=== PATIENT | male | born 1960 | race Caucasian/White ===

== ENCOUNTER 2023-11-11 00:36 | Observation (INO) ==
--- NOTE | 2023-11-11 02:02 | Emergency Department Note ---
Impression & Plan Acute alteration in mental status, Hypoglycemia, Leukocytosis, Elevated BUN, DM (diabetes mellitus), type 2 ED Provider Note CHIEF COMPLAINT: Hypoglycemia HISTORY OF PRESENTING ILLNESS: This 63-year-old male patient presents to the emergency department with his for evaluation of hypoglycemia. The patient states that he was recently diagnosed with diabetes. He took his nighttime dose of Lantus of 32 units at 2230. Shortly afterwards he was walking the dog and became lightheaded and diaphoretic. He stated that he just didn't feel right and went to lay down on the couch. Unsure how long he was on the couch and he does not remember being on the couch. His then found him on the couch and he was acting confused. They took his blood sugar and it was 82. The patient had not eaten dinner since 1730. He states that he drank some juice and ate some candy around midnight. He states that his blood sugar improved after the juice and candy. His BSG in triage was 166. He has been running around 140-150 at home typically since starting the insulin. Was in the 300's before starting insulin. He has been seeing a immigration investigator, but has not seen a healthcare educator yet. The patient denies any chest pain, SOB, or abdominal pain. His nausea and vomiting has improved. He denies any symptoms currently and states that he is at his baseline. Denies hematochezia, melena, hematuria, hemoptysis, or hematemesis. REVIEW OF SYSTEMS: See HPI for pertinent positives and pertinent negatives. ALLERGIES: NKDA MEDICATIONS: Metformin ER 500 mg 2 tab QAM, Lantus 20 units every evening - if fasting BSG >125 for 3 days in a row, increase by 2 units to a max of 40 units a day PAST MEDICAL HISTORY: Type 2 insulin dependant Diabetes PHYSICAL EXAM: VITALS: Vitals are noted on the nurse's note and reviewed by myself. GENERAL: Non toxic, no acute distress, non-diaphoretic. SKIN: Capillary refill <2 sec. EYES: PERRLA. EOMI. Conjunctivae without injection, sclerae without icterus. NOSE: Patent without discharge. MOUTH: Mucous membranes moist. Uvula midline. Airway patent. NECK: Supple without nuchal rigidity. HEART: Regular rate and rhythm without murmurs gallops or rubs. LUNGS: Clear to auscultation bilaterally without wheezes, rales or rhonchi. No retractions or accessory muscle use. ABDOMEN: Positive bowel sounds x 4. Normal tympanic percussion. Soft, nontender. No masses or organomegaly. Lopez sign negative. No guarding or rebound tenderness. No focal RLQ or LLQ tenderness. MUSCULOSKELETAL: No gross musculoskeletal defects. Peripheral pulses 2+. NEURO: Patient was alert and oriented. No focal neurological deficits. DIFFERENTIAL DIAGNOSIS: Differential diagnosis includes hypoglycemia, hyperglycemia, DKA, infection, UTI, dehydration, electrolyte abnormality, or others. ED COURSE AND MEDICAL DECISION MAKING: HISTORY FROM INDEPENDENT HISTORIAN: Additional history obtained from the patient's . MONITOR: Continuous microbiology professor: Order was placed for continuous microbiology professor. Patient was placed on the microbiology professor and continuous pulse ox. Patient was noted to be in normal sinus rhythm at an initial rate of 84 bpm per my interpretation. EKG: EKG was interpreted by myself as normal sinus rhythm at 88 bpm with a right bundle branch block. No obvious acute ST or T wave changes. No previous EKGs to compare. MEDICATIONS GIVEN: 1 L normal saline solution bolus. INTERPRETATION OF LABS: I interpreted the labs with full lab results as below in the lab section of this note. White blood cell count elevated 18.03. Hemoglobin normal at 15.3. Platelet count normal at 296. Sodium 135, glucose 215, and BUN 40, but the remainder of the CMP unremarkable. The patient's glucose on arrival was 166, was 215 with lab draw, and improved to 142 after the 1 L normal saline solution bolus. Lipase normal. High-sensitivity troponin x 2 were normal. D-dimer was normal. Magnesium normal. INTERPRETATION OF IMAGING: Imaging studies were interpreted by myself and read by radiology as per the imaging section of this note. Chest x-ray without acute cardiopulmonary etiology. CT scan of the head without contrast was negative for acute intracranial abnormality. EXTERNAL RECORDS REVIEWED: I reviewed the patient's medical records from [facility]. Laboratory studies on 10/07/2023 showed a normal BUN and normal white blood cell count. CONSULTATIONS: On-call hospitalist [facility] SUMMARY: I examined the patient. The patient initially stated that he took his nighttime dose of Lantus 32 units and shortly afterwards became lightheaded and diaphoretic. He retook his blood sugar and it was 82. Once he ate some candy and drink some orange juice, his symptoms resolved. However, since he is a newly diagnosed diabetic and newly on insulin, the patient wanted to be evaluated. The patient denies any symptoms while in the emergency department. An IV lock was placed and labs were drawn. The patient's glucose on arrival was 166, was 215 with lab draw, and improved to 142 after the 1 L normal saline solution bolus. The patient's white blood cell count is elevated 18.03 with uncertain causes. The patient denies any infectious symptoms or etiology. The patient's BUN is also elevated at 40 with normal creatinine. His laboratory studies from 10/07/2023 showed a normal BUN and white blood cell count. Remainder the laboratory studies without significant abnormalities including normal high-sensitivity troponin and EKG. The patient was independently evaluated by Dr. Rubio, who agrees with my assessment and treatment plan. Upon further questioning by Dr. Rubio it was determined that the patient's symptoms may not have been secondary to hypoglycemia. The patient and his gave additional history including that the patient took his Lantus and then took the dog for a walk. He did become symptomatic with the lightheadedness and diaphoresis and went to sit on the couch to feel better. However, he does not remember sitting on the couch and does not remember anything until his found him on the couch. His stated that he was very confused when she found him. The patient's symptoms did improve with the orange juice and candy though. Question whether the patient's symptoms were actually secondary to a syncopal episode, seizure, or other acute abnormality rather than the hypoglycemia. Repeat high-sensitivity troponin was normal. D-dimer was normal. CT scan of the patient's head without contrast was unremarkable. Chest x-ray was unremarkable. Due to the patient's uncertain etiology of his symptoms, his leukocytosis, and elevated BUN, it was felt the patient would benefit from further inpatient evaluation and treatment. I spoke with the on-call hospitalist who agreed to admit the patient for further management. Please refer to their dictation for further details. The patient's care was transferred in stable condition. DIAGNOSIS: Alteration in mental status - ? syncopal episode vs hypoglycemia vs other etiology Hypoglycemia Leukocytosis Elevated BUN Type 2 diabetes on insulin Past Med/Surg History Problem List (Updated 11/11/23 @ 20:53 by Lamar Garcia PA-C) DM (diabetes mellitus), type 2 (Acute) Acute alteration in mental status (Acute) Elevated BUN (Acute) Leukocytosis (Acute) Hypoglycemia (Acute) Surgical History S/P MCL (medial collateral ligament) repair Family History Mother Diabetes Father Dementia Social History Smoking Status: Never smoker Hx Alcohol Use: No Hx Substance Use: No Preferred Language: Kyrgyz Communication Ability: Effective Ticket Sales Supervisor Required: No Beliefs That Will Affect Care: None Current Living Situation: Spouse Other Information That Helps Us Care for You: No Feels Safe at Home: Yes Safety Concerns: Feels Safe At This Time Assistive Devices: None Allergies Allergies Allergy/AdvReac Type Severity Reaction Status Date / Time spider venom Allergy Hives Verified 11/11/23 11:08 Home Meds Home Medications Medication Instructions Recorded Confirmed ashheberdha extract 120 mg capsule 125 mg PO DAILY 11/11/23 11/11/23 blood sugar diagnostic (Accu-Chek 11/11/23 11/11/23 Guide test strips) blood-glucose meter (Accu-Chek 11/11/23 11/11/23 Guide Me Glucose Meter) insulin glargine 100 unit/mL (3 20 unit subcut QPM 11/11/23 11/11/23 mL) subcutaneous pen (Lantus Solostar U-100 Insulin) lancets 33 gauge (OneTouch Delica 11/11/23 11/11/23 Plus Lancet) metformin 500 mg tablet,extended 1,000 mg PO QAM 11/11/23 11/11/23 release 24 hr multivitamin 1 tab PO DAILY 11/11/23 11/11/23 pen needle, diabetic 32 gauge x 11/11/23 11/11/23 5/32" (BD Tamara 2nd Gen Pen Needle) vitamin K2 100 mcg capsule 100 mcg PO DAILY 11/11/23 11/11/23 Results & Data (ED) Vital Signs Vital Signs - 24 hr 11/11/23 00:44 11/11/23 02:13 11/11/23 02:30 Temperature 36.5 C Temperature Source Temporal Artery Scan Pulse Rate 90 Pulse Rate [Right Finger] 87 88 Pulse Rhythm [Right Finger] Regular Respiratory Rate 18 16 18 Respiratory Effort / Characteristics Non-Labored Spontaneous Non-Labored Spontaneous Respiratory Depth Normal Normal Respiratory Pattern Regular Regular Blood Pressure 135/79 Blood Pressure [Right Arm] 125/69 125/69 Blood Pressure Mean 97 Blood Pressure Mean [Right Arm] 87 87 Blood Pressure Position Sitting Pulse Oximetry 98 95 98 Oxygen Delivery Method Room Air Room Air Room Air Sepsis Recent Fever Within 48 Hours No Sepsis New/Unexplained Change in Mental Status N/A Sepsis Action Taken by Nursing No Action Required 11/11/23 03:22 11/11/23 03:23 11/11/23 07:24 Temperature Temperature Source Pulse Rate Pulse Rate [Right Finger] 85 83 Pulse Rhythm [Right Finger] Regular Respiratory Rate 16 14 Respiratory Effort / Characteristics Non-Labored Spontaneous Respiratory Depth Normal Respiratory Pattern Regular Blood Pressure Blood Pressure [Right Arm] 127/66 140/84 Blood Pressure Mean Blood Pressure Mean [Right Arm] 86 102 Blood Pressure Position Pulse Oximetry 96 96 98 Oxygen Delivery Method Room Air Room Air Room Air Sepsis Recent Fever Within 48 Hours Sepsis New/Unexplained Change in Mental Status Sepsis Action Taken by Nursing Laboratory Data 11/11/23 02:07 11/11/23 02:07 Lab Results 11/11/23 11/11/23 11/11/23 Range/Units 00:51 02:07 03:25 WBC 18.03 H (4.8-10.8) K/ul RBC 5.10 (4.70-6.10) M/uL Hgb 15.3 (14.0-18.0) g/dl Hct 44.8 (42.0-52.0) % MCV 87.8 (80.0-100.0) fL MCH 30.0 (25.0-34.0) pg MCHC 34.2 (32.0-36.0) g/dL RDW Std Deviation 39.6 (36.4-46.3) fL RDW Coeff of Mercedes 12.3 (11.5-14.5) % Plt Count 296 (130-400) K/uL MPV 10.4 (9.4-12.4) fL Immature Gran % (Auto) 0.9 % Neut % (Auto) 83.7 % Lymph % (Auto) 7.0 % [place] % (Auto) 7.6 % Eos % (Auto) 0.2 % Baso % (Auto) 0.6 % Neut # (Auto) 15.08 H (1.40-6.50) K/uL Lymph # (Auto) 1.27 (1.20-3.40) K/uL [place] # (Auto) 1.37 H (0.11-0.59) K/uL Eos # (Auto) 0.04 (0.00-0.50) K/uL Baso # (Auto) 0.11 (0.00-0.20) K/uL Immature Gran # (Auto) 0.16 (0.01-0.20) K/uL D-Dimer (0-500) ug/L FEU Sodium 135 L (136-145) mmol/L Potassium 4.3 (3.5-5.1) mmol/L Chloride 103 (98-107) mmol/L Carbon Dioxide 23 (21-32) mmol/L Anion Gap 9 (3-11) BUN 40 H (6-23) mg/dl Creatinine 1.05 (0.6-1.4) mg/dl Est Cr Clr Drug Dosing 69.7 ml/min Est GFR ( Amer) 87.1 ml/min Est GFR (Non-Af Amer) 75.2 ml/min BUN/Creatinine Ratio 38.1 H (10-20) Glucose 215 H (70-99(Fasting)) mg/dl POC Glucose 166 H (70-99) mg/dl Calcium 9.6 (8.6-10.3) mg/dl Magnesium (1.7-2.4) mg/dl Total Bilirubin 0.2 (0.2-1.0) mg/dl AST 21 (13-39) U/L ALT 25 (7-52) U/L Alkaline Phosphatase 72 (34-104) U/L Troponin I High Sens 5.0 (0-20) pg/ml Total Protein 7.0 (6.0-8.3) gm/dl Albumin 4.2 (3.4-5.0) gm/dl Globulin 2.8 (2.5-4.0) gm/dl Albumin/Globulin Ratio 1.5 (0.9-2) Lipase 49 (11-82) U/L Urine Color Yellow Urine Appearance Clear (Clear) Urine pH 5.0 (4.5-7.5) Ur Specific [place] 1.032 H (1.000-1.030) Urine Protein Negative (Negative) Urine Glucose (UA) 3+ H (Negative) Urine Ketones Trace H (Negative) Urine Blood Negative (Negative) Urine Nitrite Negative (Negative) Urine Bilirubin Negative (Negative) Urine Urobilinogen Negative (Negative) Ur Leukocyte Esterase Negative (Negative) 11/11/23 11/11/23 Range/Units 05:02 07:01 WBC (4.8-10.8) K/ul RBC (4.70-6.10) M/uL Hgb (14.0-18.0) g/dl Hct (42.0-52.0) % MCV (80.0-100.0) fL MCH (25.0-34.0) pg MCHC (32.0-36.0) g/dL RDW Std Deviation (36.4-46.3) fL RDW Coeff of Mercedes (11.5-14.5) % Plt Count (130-400) K/uL MPV (9.4-12.4) fL Immature Gran % (Auto) % Neut % (Auto) % Lymph % (Auto) % [place] % (Auto) % Eos % (Auto) % Baso % (Auto) % Neut # (Auto) (1.40-6.50) K/uL Lymph # (Auto) (1.20-3.40) K/uL [place] # (Auto) (0.11-0.59) K/uL Eos # (Auto) (0.00-0.50) K/uL Baso # (Auto) (0.00-0.20) K/uL Immature Gran # (Auto) (0.01-0.20) K/uL D-Dimer 470 (0-500) ug/L FEU Sodium (136-145) mmol/L Potassium (3.5-5.1) mmol/L Chloride (98-107) mmol/L Carbon Dioxide (21-32) mmol/L Anion Gap (3-11) BUN (6-23) mg/dl Creatinine (0.6-1.4) mg/dl Est Cr Clr Drug Dosing ml/min Est GFR ( Amer) ml/min Est GFR (Non-Af Amer) ml/min BUN/Creatinine Ratio (10-20) Glucose (70-99(Fasting)) mg/dl POC Glucose 142 H (70-99) mg/dl Calcium (8.6-10.3) mg/dl Magnesium 2.0 (1.7-2.4) mg/dl Total Bilirubin (0.2-1.0) mg/dl AST (13-39) U/L ALT (7-52) U/L Alkaline Phosphatase (34-104) U/L Troponin I High Sens 4.8 (0-20) pg/ml Total Protein (6.0-8.3) gm/dl Albumin (3.4-5.0) gm/dl Globulin (2.5-4.0) gm/dl Albumin/Globulin Ratio (0.9-2) Lipase (11-82) U/L Urine Color Urine Appearance (Clear) Urine pH (4.5-7.5) Ur Specific [place] (1.000-1.030) Urine Protein (Negative) Urine Glucose (UA) (Negative) Urine Ketones (Negative) Urine Blood (Negative) Urine Nitrite (Negative) Urine Bilirubin (Negative) Urine Urobilinogen (Negative) Ur Leukocyte Esterase (Negative) Administered Medications Enoxaparin Sodium (Enoxaparin Inj 40 Mg/0.4 Ml Syr) 40 mg SQ QAM NALINI Stop: 12/11/23 11:59 Last Admin: 11/11/23 12:36 Dose: Not Given Documented By: JANEE Insulin Aspart (Insulin Aspart Per Unit Charge) 0 units SC ACHS NALINI Stop: 12/11/23 11:29 Last Admin: 11/11/23 17:54 Dose: 2 units Documented By: QUENTIN Co-signed By: BERNARDA Admin: 11/11/23 13:47 Dose: 4 units Documented By: JANEE Co-signed By: ALEKSANDRA Discontinued Medications Sodium Chloride (Nss) 1,000 mls @ 999 mls/hr IV .[id number] ONE Stop: 11/11/23 04:46 Last Infusion: 11/11/23 05:00 Dose: Infused Documented By: Admin: 11/11/23 04:15 Dose: 999 mls/hr Documented By: SUE Lactated Ringer's (Lr) 1,000 mls @ 75 mls/hr IV .[id number] ONE Stop: 11/11/23 23:46 Last Infusion: 11/11/23 19:35 Dose: Infused Documented By: Admin: 11/11/23 13:50 Dose: 75 mls/hr Documented By: JANEE Miscellaneous Information (Patient's Allergy Info Needs Entered) 1 each N/A Q30M NALINI Stop: 12/11/23 10:44 Last Admin: 11/11/23 19:37 Dose: Not Given Documented By: Admin: 11/11/23 18:23 Dose: 1 each Documented By: Admin: 11/11/23 12:11 Dose: 1 each Documented By: JANEE Discharge Plan Visit Data Chief Complaint: Hypoglycemia Stated Complaint: DIABETIC,SUGAR LEVEL 80-PETRONA ED Provider: Jamie Rubio ED Midlevel Provider: Lamar Garcia Discharge Problem: Acute alteration in mental status, Hypoglycemia, Leukocytosis, Elevated BUN, DM (diabetes mellitus), type 2 Patient Disposition: Admitted As Inpatient Condition: Good Discharge Instructions Interventions: ED Discharge Assessment Last Done: 11/11/23 20:07 Discharge Problem: Leukocytosis Qualifiers: Leukocytosis type: unspecified Qualified Code(s): D72.829 - Elevated white blood cell count, unspecified
[2023-11-11 02:35] LABS: Basophils # (auto) 0.11 K/uL (0.00-0.20); Basophils % (auto) 0.6 %; Eosinophils # (auto) 0.04 K/uL (0.00-0.50); Eosinophils % (auto) 0.2 %; Hematocrit (blood only) 44.8 % (42.0-52.0); Hemoglobin 15.3 g/dl (14.0-18.0); Immature Granulocytes # (auto) 0.16 K/uL (0.01-0.20); Immature Granulocytes % (auto) 0.9 %; Lymphocytes # (auto) 1.27 K/uL (1.20-3.40); Mean Corpuscular Hgb Conc 34.2 g/dL (32.0-36.0); Mean Corpuscular Volume 87.8 fL (80.0-100.0); Mean Platelet Volume 10.4 fL (9.4-12.4); Monocytes # (auto) 1.37 K/uL (0.11-0.59); Monocytes % (auto) 7.6 %; Neutrophils # (auto) 15.08 K/uL (1.40-6.50); Neutrophils % (auto) 83.7 %; Platelet Count 296 K/uL (130-400); RDW Coefficient of Variation 12.3 % (11.5-14.5); RDW Standard Deviation 39.6 fL (36.4-46.3); White Blood Count 18.03 K/ul (4.8-10.8)
[2023-11-11 03:04] LABS: Albumin Globulin Ratio 1.5 (0.9-2); Albumin Level 4.2 gm/dl (3.4-5.0); BUN Creatinine Ratio 38.1 (10-20); Bilirubin,Total 0.2 mg/dl (0.2-1.0); Calcium 9.6 mg/dl (8.6-10.3); Creatinine Clr Calc Pharmacy 69.7 ml/min; Est GFR (African American) 87.1 ml/min; Est GFR (Non-African American) 75.2 ml/min; Globulin 2.8 gm/dl (2.5-4.0)
[2023-11-11 03:20] LABS: Potassium 4.3 mmol/L (3.5-5.1)
[2023-11-11] MEDS: SODIUM CHLORIDE 0.9% 1,000 ML IV ONE (04:15)
[2023-11-11 04:16] LABS: Appearance Urine Clear (Clear); Bilirubin Urine Negative (Negative); Blood Urine Negative (Negative); Color Urine Yellow; Glucose Urine UA 3+ (Negative); Ketones Urine Trace (Negative); Leukocyte Esterase Urine Negative (Negative); Nitrite Urine Negative (Negative); Protein Urine Negative (Negative); Specific Gravity Urine 1.032 (1.000-1.030); Urobilinogen Urine Negative (Negative)
--- NOTE | 2023-11-11 06:55 | CT Scan Report ---
CT SCAN OF THE BRAIN WITHOUT IV CONTRAST CLINICAL HISTORY: Syncope. COMPARISON STUDY: No priors. TECHNIQUE: Unenhanced axial CT scan of the brain is performed from the vertex to the skull base. A d ose lowering technique was utilized adhering to the principles of ALARA. CT DOSE: 625.8 mGy.cm FINDINGS: Brain parenchyma: The brain parenchyma is normal in appearance. There is no hemorrhage, mass effect, or evidence of acute territorial ischemia by CT criteria. Velazquez-white matter differentiation is preser noah. No extra-axial fluid collection is seen. Ventricles, sulci, cisterns: Normal in configuration. Intracranial vasculature: The visualized intracranial vasculature at the skull base is normal in appe arance. Calvarium: Unremarkable. Sinuses and mastoids: The visualized paranasal sinuses are clear. The mastoid air cells are well pneu matized. Orbits: The bony orbits are grossly intact. IMPRESSION: No acute intracranial abnormality. ACT 112: Negative or not required by law. Electronically signed by: Musa Emerson M.D. 11/11/2023 6:53 AM
--- NOTE | 2023-11-11 06:56 | Communication Note ---
Date of Service: November 11, 2023 Requested to admit patient before 6:30 AM. Patient brought in for near syncope/syncope, low BSG at home as per ED provider. Patient informed me that he does not want to stay despite recommendations of medical providers and 's pleading. I communicated this to Dr. Rubio (ED provider) who will talk to the patient again. I requested ED provider to contact Dr. Rodríguez regarding patient disposition.
[2023-11-11 07:36] LABS: Troponin I High Sensitivity 4.8 pg/ml (0-20)
[2023-11-11 07:41] LABS: D Dimer 470 ug/L FEU (0-500)
--- NOTE | 2023-11-11 08:26 | History & Physical Report ---
Date of Service November 11, 2023 Assessment & Plan (1) Acute alteration in mental status: Plan: Altered mental status Possible metabolic encephalopathy secondary to hypoglycemic episode Possible syncope --CT head:No acute intracranial abnormality. --Carotid Doppler:No hemodynamically significant stenosis or significant atherosclerotic plaquing. Normal antegrade vertebral flow bilaterally. --ECHO: Left ventricle systolic pressure is normal. EF 65 to 70%. Left ventricle wall motion is normal. No significant valvular pathology. --Check orthostatics --Minimize hypoglycemic episodes as able --Mental status back to baseline --Monitor on telemetry for any arrhythmias --May need ZIO monitor as outpatient Will give gentle IV fluids Uncontrolled Diabetes mellitus Type II HbA1C:13.5 on 10/07/23 Recently diagnosed Hold metformin for now Continue insulin while hospitalized Avoid hypoglycemic episodes as able Monitor BGs Glycemic pharmacist consulted clinical systems educator consulted as well Update HbA1c Leukocytosis Likely situational Normal lactate levels UA, chest x-ray not suggestive of infection Afebrile No obvious source of infection Monitor CBC Hyperlipidemia Currently not on medications Right bundle branch block No prior EKG for comparison Monitor Other chronic conditions: Nephrolithiasis Varicose Veins Stable DVT Px: Lovenox SQ CODE STATUS Full Code History of Present Illness Chief Complaint: Hypoglycemia Primary Care Provider: Evelin Bhatti MD Patient is a 63-year-old male with history of diabetes mellitus type 2, nephrolithiasis, hyperlipidemia, varicose veins, the medical problems presents with history of possible syncopal episode which she attributes to blood glucose levels. Patient was recently diagnosed to have diabetes mellitus and started on Lantus and metformin. He was started on Lantus 20 units daily and was advised to increase by 2 units until he reaches a target goal of fasting blood glucose levels less than 125. Currently patient taking 32 units daily. Patient admits to taking 32 units of Lantus and later felt very weak and tired and remembers to have rested on his couch was unsure at the time whether he slept versus passed out. When he woke up this morning he noticed to have pounding heartbeats associated with diaphoresis. His family noted him to have difficulty understanding him over the phone. When checked his glucose levels it was found to be 82. He consumed some candies and fruit juice which resolved his symptoms and he came to ED for further evaluation. States being very active at baseline and currently trying to avoid carbohydrates to improve his blood glucose levels. He denies any prior syncopal episodes in the past. Reports having diarrhea since being on metformin started 1 month ago. Denies any history of chest pain, dyspnea, dizziness, pedal edema, cough, fever, chills, fall, head trauma, headache, focal weakness, change in vision, facial deformity, bowel/bladder incontinence, nausea, vomiting, abdominal pain, dysuria. Allergies Allergy/AdvReac Type Severity Reaction Status Date / Time spider venom Allergy Hives Verified 11/11/23 11:08 Home Medications Medication Instructions Recorded Confirmed Type flashdha extract 120 mg capsule 125 mg PO DAILY 11/11/23 11/11/23 History blood sugar diagnostic (Accu-Chek 11/11/23 11/11/23 History Guide test strips) blood-glucose meter (Accu-Chek 11/11/23 11/11/23 History Guide Me Glucose Meter) insulin glargine 100 unit/mL (3 20 unit subcut QPM 11/11/23 11/11/23 History mL) subcutaneous pen (Lantus Solostar U-100 Insulin) lancets 33 gauge (OneTouch Delica 11/11/23 11/11/23 History Plus Lancet) metformin 500 mg tablet,extended 1,000 mg PO QAM 11/11/23 11/11/23 History release 24 hr multivitamin 1 tab PO DAILY 11/11/23 11/11/23 History pen needle, diabetic 32 gauge x 11/11/23 11/11/23 History 5/32" (BD Tamara 2nd Gen Pen Needle) vitamin K2 100 mcg capsule 100 mcg PO DAILY 11/11/23 11/11/23 History Past Med/Surg History Problem List DM (diabetes mellitus), type 2 Acute alteration in mental status (Acute) Elevated BUN (Acute) Leukocytosis (Acute) Hypoglycemia (Acute) Surgical History S/P MCL (medial collateral ligament) repair Family History Mother Diabetes Father Dementia Social History Smoking Status: Never smoker Hx Alcohol Use: No Hx Substance Use: No Preferred Language: Guatemalan Communication Ability: Effective Appraiser Required: No Beliefs That Will Affect Care: None Current Living Situation: Spouse Other Information That Helps Us Care for You: No Feels Safe at Home: Yes Safety Concerns: Feels Safe At This Time Assistive Devices: None Review of Systems Review of Systems: All systems reviewed & are unremarkable except as noted in Subjective Physical Exam Physical Exam: Physical Exam: Vitals signs as noted above General Appearance:Moderately built and nourished, no apparent distress Head: normocephalic, Atraumatic Eyes: normal inspection, EOMI Neck: supple, Trachea midline Respiratory/Chest: Normal breath sounds, CTA, No accessory muscle use Cardiovascular: S1, S2, No murmur Abdomen/GI:Soft, Non tender, Bowel sounds present Extremities/Musculoskeletal:normal inspection, no edema Neurologic/Psych:AAOX3, grossly no focal neurological deficits Skin: normal color, warm Results & Data Results & Data Vital Signs (Past 12 Hours) Vital Signs Temp Pulse Pulse Resp BP BP Pulse Ox 11/11/23 07:24 83 14 140/84 98 11/11/23 03:23 96 11/11/23 03:22 85 16 127/66 96 11/11/23 02:30 88 18 125/69 98 11/11/23 02:13 87 16 125/69 95 11/11/23 00:44 36.5 C 90 18 135/79 98 O2 Del Method 11/11/23 07:24 Room Air 11/11/23 03:23 Room Air 11/11/23 03:22 Room Air 11/11/23 02:30 Room Air 11/11/23 02:13 Room Air 11/11/23 00:44 Room Air Laboratory Results Short CBC 11/11/23 Range/Units 02:07 WBC 18.03 H (4.8-10.8) K/ul Hgb 15.3 (14.0-18.0) g/dl Hct 44.8 (42.0-52.0) % Plt Count 296 (130-400) K/uL BMP 11/11/23 02:07 Sodium 135 L Potassium 4.3 Chloride 103 Carbon Dioxide 23 BUN 40 H Creatinine 1.05 Glucose 215 H Calcium 9.6 Liver Function 11/11/23 Range/Units 02:07 Total Bilirubin 0.2 (0.2-1.0) mg/dl AST 21 (13-39) U/L ALT 25 (7-52) U/L Alkaline Phosphatase 72 (34-104) U/L Albumin 4.2 (3.4-5.0) gm/dl Urine 11/11/23 Range/Units 03:25 Urine Color Yellow Urine Appearance Clear (Clear) Urine pH 5.0 (4.5-7.5) Ur Specific [place] 1.032 H (1.000-1.030) Urine Protein Negative (Negative) Urine Glucose (UA) 3+ H (Negative) Diagnostic Findings --CT head:No acute intracranial abnormality. ECG Additional Comments: Normal sinus rhythm, right bundle branch block, QTc 513
--- NOTE | 2023-11-11 09:19 | XRay Report ---
XR chest 1V portable HISTORY: 63 years-old Male Leukocytosis COMPARISON: None TECHNIQUE: AP view of the chest FINDINGS: Cardiac mediastinal and hilar silhouettes are within normal limits. No pneumothorax, pleural effusion or airspace consolidation. 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 The bones appea r grossly intact. IMPRESSION: No acute process. ACT 112: Negative or not required by law. The above report was generated using voice recognition software. It may contain grammatical, syntax o r spelling errors. Electronically signed by: Marin Bravo M.D. 11/11/2023 9:17 AM
[2023-11-11] MEDS ORDERED: GLUCOSE 10 TAB/TUBE PO PRN (10:27)
[2023-11-11] MEDS ORDERED: POLYETHYLENE (MIRALAX) 17 GM PACK PO PRN (10:27)
[2023-11-11] MEDS ORDERED: PROMETHAZINE HCL 6.25 MG in SODIUM CHLORIDE 0.9% 50 ML IV PRN (10:27)
[2023-11-11] MEDS ORDERED: GLUCAGON FOR INJ 1 MG VIAL SQ PRN (10:27)
[2023-11-11] MEDS ORDERED: ACETAMINOPHEN 325 MG TAB PO PRN (10:27)
[2023-11-11] MEDS ORDERED: CARBOHYDRATES FOR HYPOGLYCEMIA PO PRN (10:27)
[2023-11-11] MEDS ORDERED: GLUCOSE 40% GEL 15 GM TUBE PO PRN (10:27)
[2023-11-11] MEDS ORDERED: PHARMACY GLYCEMIC MGMT CONSULT PRN (10:27)
[2023-11-11] MEDS ORDERED: DEXTROSE 50% 50 ML SYRINGE IV PRN (10:27)
--- NOTE | 2023-11-11 12:09 | Ultrasound Report ---
US carotid doppler BI CLINICAL HISTORY: 63 years-old Male with Syncope. COMPARISON: Head CT of same day TECHNIQUE: Multiple real time sonographic images of the carotid bifurcations were obtained assessing byers scale, color Doppler and spectral wave form appearance FINDINGS: RIGHT CAROTID: The peak systolic velocity measured within the right ICA is 55 cm/sec. The end diast olic velocity measured 16 cm/sec. The ICA to CCA ratio measured 0.54 which correlates with a stenosi s of 0-50%. Mild atherosclerosis. LEFT CAROTID: The peak systolic velocity measured within the left ICA is 40 cm/sec. The end diastol ic velocity measured 15 cm/sec. The ICA to CCA ratio measured 0.43 which correlates with a stenosis o f 0-50%. Mild atherosclerosis. There is normal antegrade vertebral flow bilaterally. IMPRESSION: 1. No hemodynamically significant stenosis or significant atherosclerotic plaquing. 2. Normal antegrade vertebral flow bilaterally. ACT 112: Negative or not required by law. The above report was generated using voice recognition software. It may contain grammatical, syntax o r spelling errors. Electronically signed by: Marin Bravo M.D. 11/11/2023 12:07 PM
[2023-11-11] MEDS: Patient's ALLERGY Info needs ENTERED SCH (12:11)
[2023-11-11] MEDS: ENOXAPARIN INJ 40 MG/0.4 ML SYR SQ SCH (12:36)
[2023-11-11] MEDS: INSULIN ASPART PER UNIT CHARGE SC SCH (13:47)
[2023-11-11] MEDS: LACTATED RINGER'S 1,000 ML IV ONE (13:50)
--- NOTE | 2023-11-11 14:10 | Pharmacy Report ---
Pharmacy Glycemic Short Note 2 - Date of Service November 11, 2023 - Glycemic Short BSG Results (Last 24 hours): 11/11/23 11/11/23 11/11/23 00:51 02:07 05:02 Glucose 215 H POC Glucose 166 H 142 H 11/11/23 11:10 Glucose POC Glucose 172 H OUTPATIENT ANTIDIABETIC REGIMEN: * Lantus 20 units SC QPM- increase by 2 units if fasting BSG is greater than 125 mg/dl for 3 days to max of 40 units/day * Metformin ER 1000 mg PO QAM ASSESSMENT: * 63 y/o M came in to ER last night for hypoglycemia with symptoms. Patient had taken 32 units of Lantus at 22:30 last night. Recently diagnosed with Diabetes. Unknown A1c, ordered for tomorrow. * AM BSG= 142 and pre-lunch at 172 mg/dl. * Novolog parameters ordered with lunch conservatively based on stress between 1 and 2. * Basal insulin at HS ordered at reduced dose of 14 units based on stress of 2. PLAN FOR INPATIENT GLYCEMIC CONTROL: * Hold outpatient oral diabetes medications * Basal insulin * Lantus 14 units SQ HS. Re-assess dose tomorrow. * Bolus insulin * NovoLog per scale ACHS or Q6hrs while NPO * Goal Range: Low 120 mg/dL - High 150 mg/dL * Correction Factor: 35 mg/dL/unit * Nutritional / Prandial insulin per carb ratio of 1 unit per 13 grams CHO consumed
--- NOTE | 2023-11-11 17:12 | Electrocardiogram Report ---
Test Reason : Blood Pressure : / mmHG Vent. Rate : 088 BPM Atrial Rate : 088 BPM P-R Int : 160 ms QRS Dur : 154 ms QT Int : 424 ms P-R-T Axes : 056 075 044 degrees QTc Int : 513 ms Normal sinus rhythm Right bundle branch block Abnormal ECG No previous ECGs available Confirmed by Aidan Pina ([id number]) on 11/11/2023 5:12:27 PM Referred By: REFERRED SELF Confirmed By:Kody Pina
[2023-11-11] MEDS ORDERED: LANTUS PER UNIT CHARGE SQ SCH (21:00)
[2023-11-11] MEDS: LANTUS PER UNIT CHARGE SQ SCH (21:15)
[2023-11-12 06:45] LABS: Basophils # (auto) 0.11 K/uL (0.00-0.20); Basophils % (auto) 1.4 %; Eosinophils # (auto) 0.14 K/uL (0.00-0.50); Eosinophils % (auto) 1.8 %; Hematocrit (blood only) 41.7 % (42.0-52.0); Hemoglobin 14.3 g/dl (14.0-18.0); Immature Granulocytes # (auto) 0.03 K/uL (0.01-0.20); Immature Granulocytes % (auto) 0.4 %; Lymphocytes # (auto) 2.71 K/uL (1.20-3.40); Lymphocytes % (auto) 35.1 %; Mean Corpuscular Hemoglobin 29.6 pg (25.0-34.0); Mean Corpuscular Hgb Conc 34.3 g/dL (32.0-36.0); Mean Corpuscular Volume 86.3 fL (80.0-100.0); Mean Platelet Volume 10.4 fL (9.4-12.4); Monocytes # (auto) 1.04 K/uL (0.11-0.59); Monocytes % (auto) 13.5 %; Neutrophils % (auto) 47.8 %; Platelet Count 282 K/uL (130-400); RDW Coefficient of Variation 12.3 % (11.5-14.5); RDW Standard Deviation 38.8 fL (36.4-46.3); Red Blood Count 4.83 M/uL (4.70-6.10); White Blood Count 7.73 K/ul (4.8-10.8)
[2023-11-12 07:08] LABS: BUN Creatinine Ratio 22.8 (10-20); Calcium 9.1 mg/dl (8.6-10.3); Creatinine Clr Calc Pharmacy 72.4 ml/min; Est GFR (African American) 91.3 ml/min; Est GFR (Non-African American) 78.8 ml/min; Potassium 3.8 mmol/L (3.5-5.1)
[2023-11-12 07:44] LABS: Estimated Average Glucose 237 mg/dl; Hemoglobin A1C 9.9 % (4.5-5.6)
--- NOTE | 2023-11-12 10:17 | Hospitalist Progress Note ---
Date of Service November 12, 2023 Assessment & Plan (1) Acute alteration in mental status: Plan: Altered mental status Possible metabolic encephalopathy secondary to hypoglycemic episode Possible syncope --CT head:No acute intracranial abnormality. --Carotid Doppler:No hemodynamically significant stenosis or significant atherosclerotic plaquing. Normal antegrade vertebral flow bilaterally. --ECHO: Left ventricle systolic pressure is normal. EF 65 to 70%. Left ventricle wall motion is normal. No significant valvular pathology. --Normal orthostatics --Minimize hypoglycemic episodes as able --Mental status back to baseline --Monitor on telemetry for any arrhythmias --Advised outpatient ZIO monitor Plan to discharge home today Uncontrolled Diabetes mellitus Type II HbA1C:13.5 on 10/07/23 HbA1C 9.9 11/12/23 Recently diagnosed Hold metformin while hospitalized Continue insulin while hospitalized Avoid hypoglycemic episodes as able Monitor BGs Glycemic pharmacist consulted family living educator consulted Lantus dose decreased to 10 units BID on discharge Advised to follow-up with primary care physician for further adjustment of diabetic medications on discharge Leukocytosis Likely situational Normal lactate levels UA, chest x-ray not suggestive of infection Afebrile No obvious source of infection Monitor CBC Hyperlipidemia Currently not on medications Right bundle branch block No prior EKG for comparison Monitor Other chronic conditions: Nephrolithiasis Varicose Veins Stable DVT Px: Lovenox SQ CODE STATUS Full Code Disposition Home Admission and Anticipated Discharge Date Admission Date: November 11, 2023 Subjective Patient is seen and examined at bedside States feeling well today Offers no complaints Eager to get discharged Denies any chest pain, dyspnea, dizziness, nausea, vomiting, abdominal pain No other complaints Review of Systems Review of Systems: All systems reviewed & are unremarkable except as noted in Subjective Physical Exam Physical Exam: Physical Exam: Vitals signs as noted above General Appearance:Moderately built and nourished, no apparent distress Head: normocephalic, Atraumatic Eyes: normal inspection, EOMI Neck: supple, Trachea midline Respiratory/Chest: Normal breath sounds, CTA, No accessory muscle use Cardiovascular: S1, S2, No murmur Abdomen/GI:Soft, Non tender, Bowel sounds present Extremities/Musculoskeletal:normal inspection, no edema Neurologic/Psych:AAOX3, grossly no focal neurological deficits Skin: normal color, warm Results & Data Results & Data Vital Signs (Past 12 Hours) Vital Signs Temp Pulse Pulse Resp BP BP Pulse Ox 11/12/23 08:21 82 11/12/23 07:20 36.5 C 82 18 128/79 95 11/12/23 04:23 36.7 C 84 18 132/73 97 11/11/23 22:31 91 H O2 Del Method 11/12/23 08:21 11/12/23 07:20 Room Air 11/12/23 04:23 Room Air 11/11/23 22:31 Laboratory Results Short CBC 11/12/23 Range/Units 05:21 WBC 7.73 (4.8-10.8) K/ul Hgb 14.3 (14.0-18.0) g/dl Hct 41.7 L (42.0-52.0) % Plt Count 282 (130-400) K/uL BMP 11/12/23 05:21 Sodium 139 Potassium 3.8 Chloride 108 H Carbon Dioxide 24 BUN 23 Creatinine 1.01 Glucose 129 H Calcium 9.1
--- NOTE | 2023-11-12 12:30 | Discharge Summary ---
Date of Service November 12, 2023 Admission HPI Per Admitting Provider Patient is a 63-year-old male with history of diabetes mellitus type 2, nephrolithiasis, hyperlipidemia, varicose veins, the medical problems presents with history of possible syncopal episode which she attributes to blood glucose levels. Patient was recently diagnosed to have diabetes mellitus and started on Lantus and metformin. He was started on Lantus 20 units daily and was advised to increase by 2 units until he reaches a target goal of fasting blood glucose levels less than 125. Currently patient taking 32 units daily. Patient admits to taking 32 units of Lantus and later felt very weak and tired and remembers to have rested on his couch was unsure at the time whether he slept versus passed out. When he woke up this morning he noticed to have pounding heartbeats associated with diaphoresis. His family noted him to have difficulty understanding him over the phone. When checked his glucose levels it was found to be 82. He consumed some candies and fruit juice which resolved his symptoms and he came to ED for further evaluation. States being very active at baseline and currently trying to avoid carbohydrates to improve his blood glucose levels. He denies any prior syncopal episodes in the past. Reports having diarrhea since being on metformin started 1 month ago. Denies any history of chest pain, dyspnea, dizziness, pedal edema, cough, fever, chills, fall, head trauma, headache, focal weakness, change in vision, facial deformity, bowel/bladder incontinence, nausea, vomiting, abdominal pain, dysuria. Admission Exam Per Admitting Provider Physical Exam: Vitals signs as noted above General Appearance:Moderately built and nourished, no apparent distress Head: normocephalic, Atraumatic Eyes: normal inspection, EOMI Neck: supple, Trachea midline Respiratory/Chest: Normal breath sounds, CTA, No accessory muscle use Cardiovascular: S1, S2, No murmur Abdomen/GI:Soft, Non tender, Bowel sounds present Extremities/Musculoskeletal:normal inspection, no edema Neurologic/Psych:AAOX3, grossly no focal neurological deficits Skin: normal color, warm Principal Diagnosis Suspected syncopal episode due to hypoglycemia Acute metabolic encephalopathy Uncontrolled diabetes mellitus type 2 Right bundle branch block Discharge Data Allergies Allergy/AdvReac Type Severity Reaction Status Date / Time spider venom Allergy Hives Verified 11/11/23 11:08 Consultations 11/11/23 06:28 ED Decision to Admit Stat Procedures Performed Laboratory Results WBC 7.73 K/ul (4.8-10.8) 11/12/23 05:21 RBC 4.83 M/uL (4.70-6.10) 11/12/23 05:21 Hgb 14.3 g/dl (14.0-18.0) 11/12/23 05:21 Hct 41.7 % (42.0-52.0) L 11/12/23 05:21 MCV 86.3 fL (80.0-100.0) 11/12/23 05:21 MCH 29.6 pg (25.0-34.0) 11/12/23 05:21 MCHC 34.3 g/dL (32.0-36.0) 11/12/23 05:21 RDW Std Deviation 38.8 fL (36.4-46.3) 11/12/23 05:21 RDW Coeff of Mercedes 12.3 % (11.5-14.5) 11/12/23 05:21 Plt Count 282 K/uL (130-400) 11/12/23 05:21 MPV 10.4 fL (9.4-12.4) 11/12/23 05:21 Immature Gran % (Auto) 0.4 % 11/12/23 05:21 Neut % (Auto) 47.8 % 11/12/23 05:21 Lymph % (Auto) 35.1 % 11/12/23 05:21 Swain % (Auto) 13.5 % 11/12/23 05:21 Eos % (Auto) 1.8 % 11/12/23 05:21 Baso % (Auto) 1.4 % 11/12/23 05:21 Neut # (Auto) 3.70 K/uL (1.40-6.50) 11/12/23 05:21 Lymph # (Auto) 2.71 K/uL (1.20-3.40) 11/12/23 05:21 Swain # (Auto) 1.04 K/uL (0.11-0.59) H 11/12/23 05:21 Eos # (Auto) 0.14 K/uL (0.00-0.50) 11/12/23 05:21 Baso # (Auto) 0.11 K/uL (0.00-0.20) 11/12/23 05:21 Immature Gran # (Auto) 0.03 K/uL (0.01-0.20) 11/12/23 05:21 D-Dimer 470 ug/L FEU (0-500) 11/11/23 07:01 Sodium 139 mmol/L (136-145) 11/12/23 05:21 Potassium 3.8 mmol/L (3.5-5.1) 11/12/23 05:21 Chloride 108 mmol/L (98-107) H 11/12/23 05:21 Carbon Dioxide 24 mmol/L (21-32) 11/12/23 05:21 Anion Gap 7 (3-11) 11/12/23 05:21 BUN 23 mg/dl (6-23) 11/12/23 05:21 Creatinine 1.01 mg/dl (0.6-1.4) 11/12/23 05:21 Est Cr Clr Drug Dosing 72.4 ml/min 11/12/23 05:21 Est GFR ( Amer) 91.3 ml/min 11/12/23 05:21 Est GFR (Non-Af Amer) 78.8 ml/min 11/12/23 05:21 BUN/Creatinine Ratio 22.8 (10-20) H 11/12/23 05:21 Glucose 129 mg/dl (70-99(Fasting)) H 11/12/23 05:21 POC Glucose 127 mg/dl (70-99) H 11/12/23 07:53 Estimat Average Glucose 237 mg/dl 11/12/23 05:21 Hemoglobin A1c 9.9 % (4.5-5.6) H 11/12/23 05:21 Lactate 1.3 mmol/L (0.4-2.0) 11/11/23 11:27 Calcium 9.1 mg/dl (8.6-10.3) 11/12/23 05:21 Magnesium 2.0 mg/dl (1.7-2.4) 11/12/23 05:21 Total Bilirubin 0.2 mg/dl (0.2-1.0) 11/11/23 02:07 AST 21 U/L (13-39) 11/11/23 02:07 ALT 25 U/L (7-52) 11/11/23 02:07 Alkaline Phosphatase 72 U/L (34-104) 11/11/23 02:07 Troponin I High Sens 4.8 pg/ml (0-20) 11/11/23 07:01 Total Protein 7.0 gm/dl (6.0-8.3) 11/11/23 02:07 Albumin 4.2 gm/dl (3.4-5.0) 11/11/23 02:07 Globulin 2.8 gm/dl (2.5-4.0) 11/11/23 02:07 Albumin/Globulin Ratio 1.5 (0.9-2) 11/11/23 02:07 Lipase 49 U/L (11-82) 11/11/23 02:07 Urine Color Yellow 11/11/23 03:25 Urine Appearance Clear (Clear) 11/11/23 03:25 Urine pH 5.0 (4.5-7.5) 11/11/23 03:25 Ur Specific [place] 1.032 (1.000-1.030) H 11/11/23 03:25 Urine Protein Negative (Negative) 11/11/23 03:25 Urine Glucose (UA) 3+ (Negative) H 11/11/23 03:25 Urine Ketones Trace (Negative) H 11/11/23 03:25 Urine Blood Negative (Negative) 11/11/23 03:25 Urine Nitrite Negative (Negative) 11/11/23 03:25 Urine Bilirubin Negative (Negative) 11/11/23 03:25 Urine Urobilinogen Negative (Negative) 11/11/23 03:25 Ur Leukocyte Esterase Negative (Negative) 11/11/23 03:[address] 11/11/23 06:03 CT SCAN OF THE BRAIN WITHOUT IV CONTRAST CLINICAL HISTORY: Syncope. COMPARISON STUDY: No priors. TECHNIQUE: Unenhanced axial CT scan of the brain is performed from the vertex to the skull base. A dose lowering technique was utilized adhering to the principles of ALARA. CT DOSE: 625.8 mGy.cm FINDINGS: Brain parenchyma: The brain parenchyma is normal in appearance. There is no hemorrhage, mass effect, or evidence of acute territorial ischemia by CT criteria. Velazquez-white matter differentiation is preserved. No extra-axial fluid collection is seen. Ventricles, sulci, cisterns: Normal in configuration. Intracranial vasculature: The visualized intracranial vasculature at the skull base is normal in appearance. Calvarium: Unremarkable. Sinuses and mastoids: The visualized paranasal sinuses are clear. The mastoid air cells are well pneumatized. Orbits: The bony orbits are grossly intact. IMPRESSION: No acute intracranial abnormality. ACT 112: Negative or not required by law. Electronically signed by: Musa Emerson M.D. 11/11/2023 6:53 AM Chest X-Ray 11/11/23 08:39 XR chest 1V portable HISTORY: 63 years-old Male Leukocytosis COMPARISON: None TECHNIQUE: AP view of the chest FINDINGS: Cardiac mediastinal and hilar silhouettes are within normal limits. No pneumothorax, pleural effusion or airspace consolidation. 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 The bones appear grossly intact. IMPRESSION: No acute process. ACT 112: Negative or not required by law. The above report was generated using voice recognition software. It may contain grammatical, syntax or spelling errors. Electronically signed by: Marin Bravo M.D. 11/11/2023 9:17 AM Carotid Doppler Study 11/11/23 10:27 US carotid doppler BI CLINICAL HISTORY: 63 years-old Male with Syncope. COMPARISON: Head CT of same day TECHNIQUE: Multiple real time sonographic images of the carotid bifurcations were obtained assessing velazquez scale, color Doppler and spectral wave form appearance FINDINGS: RIGHT CAROTID: The peak systolic velocity measured within the right ICA is 55 cm/sec. The end diastolic velocity measured 16 cm/sec. The ICA to CCA ratio measured 0.54 which correlates with a stenosis of 0-50%. Mild atherosclerosis. LEFT CAROTID: The peak systolic velocity measured within the left ICA is 40 cm/sec. The end diastolic velocity measured 15 cm/sec. The ICA to CCA ratio measured 0.43 which correlates with a stenosis of 0-50%. Mild atherosclerosis. There is normal antegrade vertebral flow bilaterally. IMPRESSION: 1. No hemodynamically significant stenosis or significant atherosclerotic plaquing. 2. Normal antegrade vertebral flow bilaterally. ACT 112: Negative or not required by law. The above report was generated using voice recognition software. It may contain grammatical, syntax or spelling errors. Electronically signed by: Marin Bravo M.D. 11/11/2023 12:07 PM Ordered Studies 11/11/23 06:03 CT head/brain wo con Stat 11/11/23 10:27 US carotid doppler BI Routine Hospital Course (1) Acute alteration in mental status: Altered mental status Possible metabolic encephalopathy secondary to hypoglycemic episode Possible syncope --CT head:No acute intracranial abnormality. --Carotid Doppler:No hemodynamically significant stenosis or significant atherosclerotic plaquing. Normal antegrade vertebral flow bilaterally. --ECHO: Left ventricle systolic pressure is normal. EF 65 to 70%. Left ventricle wall motion is normal. No significant valvular pathology. --Normal orthostatics --Minimize hypoglycemic episodes as able --Mental status back to baseline --Monitor on telemetry for any arrhythmias --Advised outpatient ZIO monitor Plan to discharge home today Uncontrolled Diabetes mellitus Type II HbA1C:13.5 on 10/07/23 HbA1C 9.9 11/12/23 Recently diagnosed Hold metformin while hospitalized Continue insulin while hospitalized Avoid hypoglycemic episodes as able Monitor BGs Glycemic pharmacist consulted certified adapted physical educator consulted Lantus dose decreased to 10 units BID on discharge Advised to follow-up with primary care physician for further adjustment of diabetic medications on discharge Leukocytosis Likely situational Normal lactate levels UA, chest x-ray not suggestive of infection Afebrile No obvious source of infection Monitor CBC Hyperlipidemia Currently not on medications Right bundle branch block No prior EKG for comparison Monitor Other chronic conditions: Nephrolithiasis Varicose Veins Stable DVT Px: Lovenox SQ CODE STATUS Full Code Disposition Home Total Time Total Time Spent Total Time Spent (In Minutes): 48 minutes Discharge Plan Discharge Items Patient Disposition: Home - Self-Care Reason For Visit: PRESYNCOPE Discharge Diagnosis: Suspected syncopal episode due to hypoglycemia Uncontrolled diabetes mellitus type 2 Right bundle branch block Condition on Discharge: Good Activity: Per Instructions section Exercise/Sports: Gradually increase as tolerated Non-emergency contact: Primary Care Provider Call non-emergency contact if: you have any medication questions, your symptoms worsen, your pain is concerning for you and you have a fever Follow-up/Referrals: Evelin Bhatti MD [Primary Care Provider] - Diet: Carb Consistent or DM2 Addtl Attending Provider Instructions: Follow-up with your primary care physician in 1 week Follow-up with diabetic pharmacist/clinic in 1 week as advised --Monitor your blood glucose levels regularly as advised. --Consider ZIO monitor to rule out arrhythmias as advised. --Discuss with your physician for further adjustment of your diabetic medications as advised. Seek immediate medical attention if your symptoms reoccur or worsen Please take all medications as instructed on discharge list below. Please call if you have any questions or problems. You can reach a [facility] hospitalist on duty at [facility] 24 hours a day by calling [phone] Pending Studies at Discharge: No Stand-Alone Forms: My [facility], Smoking Cessation Medications and DC Order Prescriptions: New insulin glargine [Lantus U-100 Insulin] 100 unit/mL Solution 10 unit subcut BID Qty: 0 0RF Rx Instructions: Hold Lantus when Blood glucose levels less than 110. Continued multivitamin Tablet 1 tab PO DAILY (DME) blood-glucose meter [Accu-Chek Guide Me Glucose Mtr] Misc MISCELLANEOUS (DME) Accu-Chek Guide test strips Strip MISCELLANEOUS metformin 500 mg tablet extended release 24 hr 1,000 mg PO QAM (DME) pen needle, diabetic [BD Tamara 2nd Gen Pen Needle] 32 gauge x 5/32" needle MISCELLANEOUS (DME) lancets [OneTouch Delica Plus Lancet] 33 gauge misc MISCELLANEOUS vitamin K2 100 mcg Capsule 100 mcg PO DAILY ashwagandha extract 120 mg Capsule 125 mg PO DAILY Discontinued insulin glargine [Lantus Solostar U-100 Insulin] 100 unit/mL (3 mL) insulin pen 20 unit SUBCUT QPM Discharge Orders: Discharge Order (Routine); Ordered 11/12/23 Ordered By: Octaviano Carlos Admission Data Admit Date/Time: 11/11/23 08:29 Attending Provider: Octaviano Carlos Admit Provider: Octaviano Carlos Primary Care Provider: Evelin Bhatti Other Providers: Fernando Walsh Other Interventions: Discharge Summary Assessment (RN) Last Done: 11/12/23 10:45
--- NOTE | 2023-11-13 14:39 | Electrocardiogram Report ---
Test Reason : Blood Pressure : / mmHG Vent. Rate : 084 BPM Atrial Rate : 084 BPM P-R Int : 158 ms QRS Dur : 152 ms QT Int : 422 ms P-R-T Axes : 048 064 034 degrees QTc Int : 498 ms Normal sinus rhythm Right bundle branch block Abnormal ECG When compared with ECG of 11-NOV-2023 02:12, No significant change was found Confirmed by Hira Bryant ([id number]) on 11/13/2023 2:39:47 PM Referred By: Octaviano Carlos Confirmed By:Hira Bryant
== END 2023-11-12 10:46 | disposition home or self-care (01) ==
LOC: EDINP 00:36 → ED 00:36 → 2N 20:07